=== PATIENT | male | born 1995 | race Caucasian/White ===

== ENCOUNTER 2016-11-22 09:31 | Emergency (ER) | payer BC ==
[~2016-11-22] VITALS: Ht 180.3 cm; Wt 67.0 kg
[~2016-11-22 09:31] MED LIST: OXYC1TAB3 PO
[2016-11-22 09:42] VITALS: TEMP 36.5; Ht 180.3 cm; Wt 67.0 kg
[2016-11-22] MEDS ORDERED: TRAZ100T29 PO (09:48)
[2016-11-22] MEDS ORDERED: KETOROLAC TROMETHAMINE 30 MG/ML VIAL IV STA (09:54)
[2016-11-22] MEDS ORDERED: SODIUM CHLORIDE 0.9% 1000ML 1,000 ML IV STA (09:56)
[2016-11-22] MEDS ORDERED: SODIUM CHLORIDE 0.9% 1000ML 1,000 ML IV ONE (09:56)
--- NOTE | 2016-11-22 10:04 | EMERGENCY ROOM VISIT NOTE ---
History Report prepared by Avery: Adeola Hennessy Under the Supervision of: Dr. Nicanor Dukes M.D. First contact with patient: 09:43 Chief Complaint: CHEST PAIN Stated Complaint: CHEST PAIN Nursing Triage Summary: pt here via [facility], [place] [employer] [place], was ra[place] grass. pt states has bilateral chest pains into rib area. denies any sob. only med hx of asthma. History of Present Illness The patient is a 21 year old male who presents to the Emergency Room with complaints of persistent central chest pain that began around 0600 this morning. He currently rates his discomfort as a 5/10 in severity. The patient states that he woke up at 0400 this morning for work. He states that he vomited and had diarrhea this morning but states that he felt fine yesterday. The patient reports that he [place] when he developed the chest pain. He additionally notes shortness of breath and states that he previously had worsened pain with breathing. 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 He denies ever having pain like this in the past. The patient states that he has a history of asthma, but denies this feeling similar to an asthma attack. He reports that he is a smoker and drinks a Monster energy drink each morning. The patient states that he uses marijuana daily and is additionally takes Trazodone for his sleep. He denies any cocaine use. The patient denies any recent travel. He denies any recent injury or trauma. The patient denies any pain or swelling in his legs, melena, or hematochezia. Source of History: patient Onset: 0600 this morning Position: chest Symptom Intensity: 5/10 Timing: other (persistent) Associated Symptoms: + SOB, No melena, No hematochezia Review of Systems See HPI for pertinent positives & negatives. A total of 10 systems reviewed and were otherwise negative. Past Medical & Surgical Medical Problems: (1) Asperger's syndrome (2) Asthma Old medical records were reviewed. Nurse's notes were reviewed and I agree with. Family History No pertinent family history stated. Social History Smoking Status: Current Every Day Smoker Alcohol Use: none Drug Use: marijuana Marital Status: single Housing Status: lives with family Occupation Status: employed Current/Historical Medications Scheduled PRN Trazodone Hcl (Trazodone), 50 MG PO HS PRN for Sleep Allergies Coded Allergies: No Known Allergies (Unverified , 06/01/16) Physical Exam Vital Signs Date Time Temp Pulse Resp B/P (MAP) Pulse Ox O2 Delivery O2 Flow Rate FiO2 11/22/16 12:05 59 16 98/64 100 11/22/16 11:13 79 16 101/65 11/22/16 09:42 36.5 54 16 101/56 98 Room Air 11/22/16 09:39 55 Physical Exam General: Well developed well nourished, non-ill appearing young male, in no acute distress, breathing comfortably on room air. Normal speech HEENT: Normal cephalic atraumatic. Pupils are equal round and reactive to light. Extraocular movements are intact. Oropharynx is pink with moist mucous membranes. No swelling of the mouth lips or tongue. Neck: Supple with a midline trachea. No meningeal signs or stiffness, no JVD or bruits. No Stridor. Chest Wall: Mildly reproducible tenderness in the left anterior chest. Chest: Clear to auscultation bilaterally. No wheezes or rhonchi. No increased work of breathing. Heart: regular rate and rhythm. Abdomen: Soft nontender, nondistended without rebound guarding or rigidity. Extremities: No cyanosis clubbing or edema. No calf tenderness or assymetry Spine/Back. Non tender to palpation. No CVA tenderness Skin: Good turgor without rashes. Neurologic exam: Cranial nerves two through 12 are intact. Motor and sensation are intact and symmetrical throughout. Medical Decision & Procedures ER Provider Diagnostic Interpretation: X-ray results as stated below per interpretation by me and the radiologist: CHEST 2 VIEWS ROUTINE HISTORY: Atypical chest pain COMPARISON: None. FINDINGS: The lungs are clear. Cardiac silhouette is normal in size. No pleural effusions. No pneumothorax. IMPRESSION: No acute process. Electronically signed by: Owen Abarca M.D. 11/22/2016 10:49 AM Dictated Date/Time: 11/22/2016 10:47 AM Laboratory Results 11/22/16 10:05 Red Blood Count 4.94, Mean Corpuscular Volume 90.7, Mean Corpuscular Hemoglobin 31.6, Mean Corpuscular Hemoglobin Concent 34.8, Mean Platelet Volume 10.3, Neutrophils (%) (Auto) 45.7, Lymphocytes (%) (Auto) 42.7, Monocytes (%) (Auto) 7.6, Eosinophils (%) (Auto) 3.2, Basophils (%) (Auto) 0.6, Neutrophils # (Auto) 2.47, Lymphocytes # (Auto) 2.30, Monocytes # (Auto) 0.41, Eosinophils # (Auto) 0.17, Basophils # (Auto) 0.03 11/22/16 10:05 Test 11/22/16 10:05 11/22/16 10:16 White Blood Count 5.39 K/uL (4.8-10.8) Red Blood Count 4.94 M/uL (4.7-6.1) Hemoglobin 15.6 g/dL (14.0-18.0) Hematocrit 44.8 % (42-52) Mean Corpuscular Volume 90.7 fL (80-100) Mean Corpuscular Hemoglobin 31.6 pg (25-34) Mean Corpuscular Hemoglobin Concent 34.8 g/dl (32-36) Platelet Count 205 K/uL (130-400) Mean Platelet Volume 10.3 fL (7.4-10.4) Neutrophils (%) (Auto) 45.7 % Lymphocytes (%) (Auto) 42.7 % Monocytes (%) (Auto) 7.6 % Eosinophils (%) (Auto) 3.2 % Basophils (%) (Auto) 0.6 % Neutrophils # (Auto) 2.47 K/uL (1.4-6.5) Lymphocytes # (Auto) 2.30 K/uL (1.2-3.4) Monocytes # (Auto) 0.41 K/uL (0.11-0.59) Eosinophils # (Auto) 0.17 K/uL (0-0.5) Basophils # (Auto) 0.03 K/uL (0-0.2) RDW Standard Deviation 41.5 fL (36.4-46.3) RDW Coefficient of Variation 12.5 % (11.5-14.5) Immature Granulocyte % (Auto) 0.2 % Immature Granulocyte # (Auto) 0.01 K/uL (0.00-0.02) Anion Gap 6.0 mmol/L (3-11) Est Creatinine Clear Calc Drug Dose 133.4 ml/min Estimated GFR () 145.8 Estimated GFR (Non- 125.8 BUN/Creatinine Ratio 24.8 (10-20) Calcium Level 8.4 mg/dl (8.5-10.1) Total Bilirubin 0.4 mg/dl (0.2-1) Direct Bilirubin 0.1 mg/dl (0-0.2) Aspartate Amino Transf (AST/SGOT) 52 U/L (15-37) Alanine Aminotransferase (ALT/SGPT) 98 U/L (12-78) Alkaline Phosphatase 70 U/L (45-117) Total Creatine Kinase 226 U/L (39-308) Creatine Kinase MB 0.8 ng/ml (0.5-3.6) Creatine Kinase MB Ratio 0.4 (0-3.0) Total Protein 6.8 gm/dl (6.4-8.2) Albumin 3.8 gm/dl (3.4-5.0) Lipase 120 U/L (73-393) Bedside D-Dimer 40 ng/mlFEU (0-450) Bedside Troponin I < 0.030 ng/ml (0-0.045) Laboratory studies as stated above per my review. Medications Administered Medications (Trade) Dose Ordered Sig/Catherine Route Start Time Stop Time Status Last Admin Dose Admin Ketorolac Tromethamine (Toradol Inj) 30 mg NOW STAT IV 11/22/16 09:54 11/22/16 09:57 DC 11/22/16 10:19 30 MG Sodium Chloride 1,000 ml @ 999 mls/hr Q1H1M STAT IV 11/22/16 09:56 11/22/16 10:56 DC 11/22/16 10:19 999 MLS/HR Sodium Chloride 1,000 ml @ 150 mls/hr Q6H40M ONCE IV 11/22/16 09:56 11/22/16 12:55 DC 11/22/16 10:19 150 MLS/HR ECG Indication: chest pain Rate (beats per minute): 55 Rhythm: sinus bradycardia Findings: no acute ischemic change, no ectopy Comparison ECG Date: Pre hospital EKG Change: When compared to Pre Hospital EKG, Pre hospital EKG shows sinus bradycardia 54 beats per minute, no acute ischemia, no ectopy, anterior T wave change vs lead placement. ED Course 948: Past medical records reviewed. The patient was evaluated in room B6, and a complete history and physical examination were performed. 0954: Ordered Toradol Inj 30 mg IV. 0956: Sodium Chloride 1000 ml @ 150 mls/hr IV, Sodium Chloride 1000 ml @ 999 mls /hr IV. 1130: I reevaluated the patient and he is resting comfortably. I discussed the exam findings with him and I discussed the treatment plan. He verbalized complete understanding and agreement. He is ready to go home. Medical Decision Differentials include, but are not limited to; cardiac disease, pneumothorax, PE , CHF, electrolyte or metabolic abnormality. Medication Reconciliation: I attest that I have personally reviewed the patient' s current medication list. Blood pressure Screening: Patient was found to have normal blood pressure on screening and does not require follow-up. This patient comes in as described above. He's had chest pain for about 4 hours now. It is reproducible it hurts with movement is central in his chest. There's been no trauma . He looks well on exam and is stable vital signs. EKG shows sinus bradycardia without any ischemic changes. Chest x-ray was obtained as well as multiple blood testing. He was given Toradol 30 mg IV. He was reassessed frequently. No significant better with the Toradol. D-dimer was within normal limits and a low pretest probability study makes PE highly unlikely. Chest x-ray does not show any acute findings to suggest congestive heart failure, pneumonia, or pneumothorax. His no acute electrolyte or metabolic abnormalities. I do think this is most likely costochondritis/ musculoskeletal. He looks and feels well and would like to go home. I think this is reasonable he can use ibuprofen 400 mg every 6 hours, take with food. He is return ER if: increasing pain, worsening of symptoms, shortness of breath , any new problems concerns and follow up with his regular doctor within the next couple days for recheck and return to ER if symptoms worsen. He was happy with the plan and discharged to home Impression Primary Impression: Precordial chest pain Scribe Attestation The scribe's documentation has been prepared under my direction and personally reviewed by me in its entirety. I confirm that the note above accurately reflects all work, treatment, procedures, and medical decision making performed by me. Departure Information Dispostion Home / Self-Care Referrals No Doctor, Assigned (PCP) Forms HOME CARE DOCUMENTATION FORM, IMPORTANT VISIT INFORMATION Patient Instructions My [facility] Additional Instructions Rest. Drink plenty of fluids. Use ibuprofen 400 mg every 6 hours, take with food Return if: Increasing pain, shortness of breath, worsening symptoms, any new problems or concerns Follow-up with your doctor in 2-4 days for recheck
[2016-11-22 10:19] LABS: BASO % 0.6 %; BASO ABS # 0.03 K/uL (0-0.2); COMPLETE YES; EOS % 3.2 %; HEMATOCRIT 44.8 % (42-52); IG% 0.2 %; LYMPH % 42.7 %; MEAN CELL VOLUME 90.7 fL (80-100); MEAN CORPUSCULAR HEMOGLOBIN 31.6 pg (25-34); MEAN CORPUSCULAR HGB CONC 34.8 g/dl (32-36); MEAN PLATELET VOLUME 10.3 fL (7.4-10.4); MONO % 7.6 %; NEUT % 45.7 %; PLATELET COUNT 205 K/uL (130-400); RED BLOOD COUNT 4.94 M/uL (4.7-6.1); WHITE BLOOD COUNT 5.39 K/uL (4.8-10.8)
[2016-11-22 10:35] LABS: POINT OF CARE TROPONIN I < 0.030 ng/ml (0-0.045)
[2016-11-22 10:36] LABS: BUN/CREATININE RATIO 24.8 (10-20); CALCIUM 8.4 mg/dl (8.5-10.1); CREATININE 0.83 mg/dl (0.60-1.40); POTASSIUM 3.9 mmol/L (3.5-5.1)
[2016-11-22 10:41] LABS: CKMB/CK RATIO 0.4 (0-3.0)
--- NOTE | 2016-11-22 10:50 | DIAGNOSTIC IMAGING REPORT ---
CHEST 2 VIEWS ROUTINE HISTORY: Atypical chest pain COMPARISON: None. FINDINGS: The lungs are clear. Cardiac silhouette is normal in size. No pleural effusions. No pneumothorax. IMPRESSION: No acute process. Electronically signed by: Owen Abarca M.D. 11/22/2016 10:49 AM Dictated Date/Time: 11/22/2016 10:47 AM
[2016-11-22 12:05] VITALS: BP 98/64; PULSE 59; O2SAT 100
== END 2016-11-22 12:06 | disposition home or self-care (01) ==
LOC: EDBD 09:31 → C.EDB 09:32
DX: R07.2 Precordial pain (principal); J45.909 Unspecified asthma, uncomplicated; F17.210 Nicotine dependence, cigarettes, uncomplicated; F12.10 Cannabis abuse, uncomplicated; F84.5 Asperger's syndrome